=== PATIENT | male | born 2000 | race African-American/Black ===

== ENCOUNTER 2023-05-06 23:59 | Emergency (ER) | payer SELFPAY ==
[~2023-05-06] VITALS: Ht 180.3 cm; Wt 85.3 kg
[2023-05-07 00:16] VITALS: BP_SYST 139; PULSE 98; RESP 18; TEMP 98.2; O2SAT 97
[2023-05-07 04:18] VITALS: BP_SYST 122; PULSE 80; RESP 18; TEMP 97.3; O2SAT 94
== END 2023-05-07 04:18 | disposition home or self-care (01) ==
LOC: SED 23:59
DX: S90.829A Blister (nonthermal), unspecified foot, initial encounter (principal); M79.673 Pain in unspecified foot; X58.XXXA Exposure to other specified factors, initial encounter; Y93.89 Activity, other specified; Y92.89 Other specified places as the place of occurrence of the external cause; Y99.8 Other external cause status
CPT/HCPCS: 99281